=== PATIENT | female | born 1970 | race Caucasian/White ===

== ENCOUNTER 2019-08-17 02:26 | Emergency (ER) | payer BC ==
[~2019-08-17] VITALS: Ht 170.2 cm; Wt 62.6 kg
--- NOTE | 2019-08-17 03:07 | NUR ---
[employer] Intern[employer] at bedside for labs.
--- NOTE | 2019-08-17 03:07 | NUR ---
IV LINE INITIATED.
[2019-08-17 03:20] LABS: CALCIUM, SERUM 9.2 mg/dL (8.5-10.1); CARBON DIOXIDE 24 mmol/L (21-32); CHLORIDE 103 mmol/L (98-107); CREATININE 0.9 mg/dL (0.6-1.3); GLUCOSE 111 mg/dL (74-106); POTASSIUM 3.7 mmol/L (3.5-5.1); SODIUM SERUM 138 mmol/L (136-145); UREA NITROGEN, BLOOD 24 mg/dL (7-18)
[2019-08-17] MEDS ORDERED: IOHEXOL-350 100 ML VIAL IV ONE (03:27)
[2019-08-17] MEDS ORDERED: IOHEXOL-300 100 ML VIAL IV ONE (03:27)
[2019-08-17] MEDS ORDERED: IV NS 0.9% 250 ML IV ONE (03:28)
--- NOTE | 2019-08-17 03:29 | NUR ---
PT IS WHEELED TO CT SCAN VIA [facility].
[2019-08-17 03:32] LABS: BASOPHILS % (AUTO) 0.5 % (0.0-2.0); EOSINOPHILS % (AUTO) 1.9 % (0.0-6.0); HEMATOCRIT 40 % (33-45); LYMPHOCYTES # (AUTO) 3.1 /CMM (0.8-4.8); LYMPHOCYTES % (AUTO) 29.3 % (20.0-44.0); MEAN CORPUSCULAR HGB CONC 33 g/dl (31.0-36.0); MEAN CORPUSCULAR VOLUME 87 fL (82-100); MONOCYTES # (AUTO) 0.9 /CMM (0.1-1.30); MONOCYTES % (AUTO) 8.3 % (2.0-12.0); NEUTROPHILS # (AUTO) 6.3 /CMM (1.8-8.9); PLATELET COUNT (AUTO) 78 /CMM (150-450); RED BLOOD CELL COUNT(AUTO) 4.54 MIL/uL (4.0-5.2); WHITE BLOOD COUNT (AUTO) 10.5 K/uL (4.3-11.0)
[2019-08-17 03:53] LABS: EOSINOPHILS % (MANUAL) 1 % (0-4); LYMPHOCYTES % (MANUAL) 33 % (16-48); MONOCYTES % (MANUAL) 6 % (0-11.0); NEUTROPHILS % (MANUAL) 60 (42-76)
--- NOTE | 2019-08-17 04:10 | NUR ---
Patient is resting comfortably in bed. Easily aroused. VSS.
--- NOTE | 2019-08-17 04:33 | NUR ---
Patient discharged to home in stable condition. Written and verbal after care instructions given. Patient verbalizes understanding of instruction and RX. IV removed. Catheter intact and site benign. Pressure and 4x4 applied to site. No bleeding noted.
[2019-08-17 04:37] VITALS: BP 120/69
== END 2019-08-17 04:38 | disposition home or self-care (01) ==
LOC: ER 02:33
DX: R07.81 Pleurodynia (principal); R06.02 Shortness of breath; Z86.711 Personal history of pulmonary embolism
CPT/HCPCS: 36415; 71275; 80048; 84484; 85025; 93005; 99285; J7050; Q9967 ×2